=== PATIENT | female | born 1970 | race Two or more races ===

== ENCOUNTER 2023-06-28 17:18 | Emergency (ER) | payer OTHER ==
[2023-06-28 17:28] VITALS: TEMP 98.2; BMI 21.3
[2023-06-28] MEDS ORDERED: SODIUM CHLORIDE 0.9% 500 ML INFUS.BAG IV ONE (18:15)
[2023-06-28] MEDS ORDERED: LISINOPRIL 5 MG TABLET PO ONE (18:15)
[2023-06-28 18:43] LABS: EOS % 1.9 % (0-4.5); HEMATOCRIT 36.1 % (32.4-45.2); HEMOGLOBIN 11.5 GM/dL (10.7-15.3); LYMPH % 24.1 % (8-40); MCH 21.8 pg (25.7-33.7); MCHC 31.9 g/dl (32.0-36.0); MEAN CELL VOLUME 68.5 fl (80-96); MEAN PLT VOLUME 9.6 fl (7.5-11.1); MONO % 7.4 % (3.8-10.2); NEUT % 65.6 % (42.8-82.8); PLATELET COUNT 224 10^3/uL (134-434); RBC 5.28 M/mm3 (3.60-5.2); RDW 15.1 % (11.6-15.6)
[2023-06-28 18:53] LABS: POTASSIUM 4.2 mmol/L (3.5-5.1)
[2023-06-28 18:56] LABS: CALCIUM 9.6 mg/dL (8.5-10.1)
[2023-06-28 18:57] LABS: ALBUMIN 3.8 g/dl (3.4-5.0); BLOOD UREA NITROGEN 11.2 mg/dL (7-18); MAGNESIUM 1.5 mg/dL (1.8-2.4)
[2023-06-28 19:02] LABS: BILIRUBIN,TOTAL 0.5 mg/dL (0.2-1); TOT PROT 7.2 g/dl (6.4-8.2)
[2023-06-28] MEDS ORDERED: LISINOPRIL 5 MG TABLET ONE (19:26)
[2023-06-28 20:14] LABS: ANISOCYTOSIS 1+; MACROCYTOSIS 0; PLATELET ESTIMATE NORMAL; ROULEAU 1+
[2023-06-28 20:22] VITALS: BP 199/117; PULSE 88; RESP 14
[2023-06-28] MEDS ORDERED: metFORMIN HCL 500 MG TABLET (FP) PO ONE (21:36)
[2023-06-28] MEDS ORDERED: metFORMIN HCL 500 MG TABLET (FP) ONE (21:48)
== END 2023-06-28 22:28 | disposition home or self-care (01) ==
LOC: JER 17:18
DX: I10 Essential (primary) hypertension (principal); E11.65 Type 2 diabetes mellitus with hyperglycemia
CPT/HCPCS: 36415; 71046-TC-FY; 80053; 83735; 84439; 84443; 84484; 84703; 85025; 93005; 93010; 99285-25